=== PATIENT | female | born 1990 | race African-American/Black ===

== ENCOUNTER 2019-01-16 18:43 | Emergency (ER) | payer OTHER ==
[~2019-01-16] VITALS: Ht 177.8 cm; Wt 124.3 kg
[2019-01-16 22:08] VITALS: BP 108/69
[2019-01-16] MEDS ORDERED: METHOCARBAMOL 500 MG TAB PO ONE (23:00)
[2019-01-16] MEDS ORDERED: IBUPROFEN 800 MG TAB PO ONE (23:00)
== END 2019-01-16 23:39 | disposition home or self-care (01) ==
LOC: ER 18:50
DX: M47.9 Spondylosis, unspecified (principal); M62.838 Other muscle spasm; M54.2 Cervicalgia
CPT/HCPCS: 72040; 72100